=== PATIENT | female | born 1945 | race Caucasian/White ===

== ENCOUNTER 2020-05-21 23:17 | Inpatient (IN) | payer MEDICARE, SELFPAY ==
--- NOTE | ~2020-05-21 | XR_ITS ---
EXAMINATION: XR hip RT 2V w AP pelvis INDICATION: Right hip pain after fall, initial encounter TECHNIQUE: AP view the pelvis and two views of the right hip are obtained. COMPARISON: 05/26/2018 FINDINGS: There is an acute, traumatic, closed subcapital fracture of the right femoral neck. There a re changes of interval surgical fixation of the previously described left femoral neck fracture. Ther e is a questionable lucency in the proximal diaphysis of the right femur on the AP view of the pelvis . A bone island is noted in the right ilium. The bowel gas pattern is normal. IMPRESSION: 1. Acute subcapital fracture of the right femoral neck. 2. Possible lytic lesion of the right proximal femoral diaphysis. This finding was discussed with Dr. Jose MD and will be further evaluated with CT. Reviewed, dictated and finalized at location A.
--- NOTE | ~2020-05-21 | XR_ITS ---
EXAMINATION: XR surgery orthopedic DATE: 05/23/2020 11:14 INDICATION: Right femoral neck fracture. TECHNIQUE: A single intraoperative view of right hip was obtained. COMPARISON: Pelvis and right hip radiographs 05/21/2020 FINDINGS: There is a broach in proximal right femur. No fracture. IMPRESSION: 1. Right hip arthroplasty in progress with broach in proximal right femur. Reviewed, dictated and finalized at location A.
--- NOTE | ~2020-05-21 | CT_ITS ---
EXAMINATION: CT hip RT wo con DATE: 05/22/2020 09:50 INDICATION: Possible lytic lesion of the proximal femur is seen on radiograph TECHNIQUE: Computed tomography (CT) of the right hip and proximal femur was performed without intrave nous contrast. The dose-length product (DLP) was 253.21 mGy-cm. Automated exposure control and iterat kyle reconstruction technique were employed. COMPARISON: 05/21/2020, 05/26/2018 FINDINGS: No suspicious correlate is identified for the questionable lytic lesion on yesterday's radi ograph. There is an acute subcapital fracture of the right femoral neck. No additional acute osseous abnormality is identified. The visualized pelvic viscera are unremarkable. IMPRESSION: 1. No CT correlate identified for the lytic lesion questioned on radiograph. 2. Acute subcapital right femoral neck fracture. Reviewed, dictated and finalized at location A.
--- NOTE | ~2020-05-21 | XR_ITS ---
EXAMINATION: XR thoracic spine 2V, XR lumbar spine 2-3V DATE: 05/24/2020 14:14 INDICATION: Fall. Prior compression fractures. TECHNIQUE: 1. One AP, lateral and lateral swimmer's views of the thoracic spine were obtained. 2. AP, lateral and coned-down lateral lumbosacral views of the lumbar spine were obtained. COMPARISON: Chest radiograph dated 09/07/2019 FINDINGS: Thoracic spine: Mild thoracic kyphosis. Chronic compression fractures with interval vertebroplasty is at T8 and T12, both with 40% anterior vertebral body height loss. Interval progression of a chronic T7 compression f racture now with 60% anterior vertebral body height loss. Remaining vertebral body heights are normal . Disc heights are relatively preserved with mild ballooning of the disc spaces at T6-T7, T7-T8 and T 11-T12 resulting from the adjacent compression fractures. Calcified nodule in the right upper lung zo ne consistent with old granulomatous disease. Mild elevation of the left hemidiaphragm. Cardiomediast inal silhouette is normal. Lumbar spine: 4 mm retrolisthesis L5 on S1. Age-indeterminate L5 compression fracture with <20% vertebral body heig ht loss. Mild disc height loss at L1-L2 and L3-L4, severe disc height loss with vacuum phenomena and endplate remodeling at L5-S1. Bipolar type right hip hemiarthroplasty. Old healed left femoral neck f racture with lag screw fixation. IMPRESSION: 1. Chronic thoracic compression fractures with interval vertebroplasty at T8 and T12 and with interva l progression of vertebral body height loss at T7. 2. Age indeterminate mild L5 compression fracture. 3. Severe spondylosis at L5-S1 and mild spondylosis of the remainder of the thoracic and lumbar spine . Reviewed, dictated and finalized at location A. IMPRESSION: 1. Chronic thoracic compression fractures with interval vertebroplasty at T8 an d T12 and with interval progression of vertebral body height loss at T7. 2. Age indeterminate mild L5 compression fracture. 3. Severe spondylosis at L5-S1 and mild spondylosis of the remainder of the tho racic and lumbar spine.
--- NOTE | ~2020-05-21 | XR_ITS ---
EXAMINATION: XR hip RT min 2V DATE: 05/23/2020 12:14 INDICATION: Right hip arthroplasty. Postop. TECHNIQUE: 2 views of right hip were obtained. COMPARISON: Right hip radiographs 05/21/2020 FINDINGS: There is a bipolar right hip arthroplasty in near-anatomic alignment. There is 3 mm lucency adjacent to the proximal aspect of the femoral component anteriorly. No fracture. Right hip joint sp stacy is normal. There is gas in the soft tissues, consistent with recent surgery. IMPRESSION: 1. Bipolar right hip hemiarthroplasty in near-anatomic alignment. Reviewed, dictated and finalized at location B.
[2020-05-21 23:17] VITALS: BP 168/101; PULSE 97; RESP 16; TEMP 37.1; O2SAT 92
[2020-05-22] VITALS (9 sets, daily range): BP systolic 117–172; BP diastolic 89–100; PULSE 91–107; RESP 16–20; TEMP 36.2–37; O2SAT 94–97; BMI 29.3
--- NOTE | 2020-05-22 00:07 | ECG_ITS ---
Measurements Intervals [place] Rate: 92 P: 48 IN: 132 QRS: -8 QRSD: 86 T: 56 QT: 372 QTc: 462 Interpretive Statements SINUS RHYTHM POSSIBLE LEFT ATRIAL ENLARGEMENT INCOMPLETE RIGHT BUNDLE BRANCH BLOCK BASELINE ARTIFACT- I, III, AVR, AVL, AVF BORDERLINE ECG Electronically Signed On 05-22-2020 7:03:04 CDT by Vel Che D.O.
--- NOTE | 2020-05-22 00:13 | ED.LOWEXIN ---
HPI - Extremity Injury (Lower) General Chief Complaint: Extremity Injury, Lower Stated Complaint: hip pain Time Seen by Provider: 05/21/20 23:49 History of Present Illness HPI Narrative: Patient is a 74-year-old female with history of dementia who presents ER status post fall. She got up from her bed to go to the bathroom and usually her helps her but he was asleep and she would awaken him so she fell onto her hip. Sudden onset pain. No numbness or tingling. Pain with attempted range of motion. Does not take any blood thinners. Related Data Home Medications Medication Instructions Recorded Confirmed Namzaric 1 cap PO HS 09/07/19 05/22/20 lorazepam 0.5 mg PO BID PRN 09/07/19 05/22/20 sertraline 50 mg PO DAILY 09/07/19 05/22/20 duloxetine 60 mg capsule,delayed 60 mg PO DAILY 09/17/19 05/22/20 release oxycodone-acetaminophen 5 mg-325 1 tablet PO Q8H PRN tablet 01/15/20 05/22/20 mg tablet fentanyl 1 patch TRANSDERMAL Q72H 05/21/20 05/21/20 Allergies Allergy/AdvReac Type Severity Reaction Status Date / Time No Known Allergies Allergy Unverified 03/16/20 10:41 Review of Systems Review of Systems: ROS unobtainable: Yes unobtainable due to mental status (Baseline dementia.) PMFSH Past Medical History Medical History (Updated 05/22/20 @ 06:49 by Michael Bowie MD) Alzheimer's disease Anxiety Arthritis HLD (hyperlipidemia) Shingles Thoracic compression fracture Surgical History Surgical History H/O right wrist surgery History of knee replacement lt knee Hx of breast biopsy lt breast Social History Social History Smoking status: Never smoker Alcohol intake: current Drinks per week: 2 Substance use: never Substance use type: does not use Gender identity (if verbalized by the patient): Female Spiritual care concerns: No Agree to blood products: Yes Exam Narrative: Exam Narrative: GENERAL: Well-appearing, well-nourished, and in no acute distress. HEAD: Normocephalic, atraumatic. ENT: Mucous membranes moist. CHEST: Clear to auscultation. No respiratory distress. HEART: Regular rate and rhythm. Normal peripheral pulses. EXTREMITIES: TTP at the right hip with limited ROM. NV intact distally. SKIN: Warm, dry, no rash. NEURO: Alert and oriented x1. PSYCH: Normal mood and affect. Course Course Emergency Course: Discussed with Dr. Garcia, needs hospitalist admission. Vital Signs Vital signs: Vital Signs Temperature 98.8 F 05/21/20 23:17 Pulse Rate 97 05/21/20 23:17 Respiratory Rate 16 05/21/20 23:17 Blood Pressure 168/101 H 05/21/20 23:17 Pulse Oximetry 92 05/21/20 23:17 Temperature 97.6 F 05/22/20 04:10 Pulse Rate 96 05/22/20 04:41 Respiratory Rate 18 05/22/20 04:10 Blood Pressure 172/100 H 05/22/20 04:41 Pulse Oximetry 95 05/22/20 04:10 MDM - Extremity Injury (Lower) Lab Data Result diagrams: 05/22/20 00:25 05/22/20 00:25 Labs: Lab Results 05/22/20 05/22/20 05/22/20 Range/Units 00:25 00:25 00:25 WBC 13.9 H (4.5-10.0) K/mm3 RBC 4.78 (4.2-5.4) M/mm3 Hgb 14.5 (12.0-15.0) g/dL Hct 44.2 (37.0-47.0) % MCV 92.5 (80-100) fl MCH 30.3 (26-34) pg MCHC 32.8 (32-36) g/dl RDW 13.3 (11.5-14.5) % Plt Count 293 (150-375) k/mm3 MPV 10.0 (7.4-10.4) fl Immature Gran % (Auto) 0.6 H (0-0.5) % Neut % (Auto) 86.0 H (45.5-73.1) % Lymph % (Auto) 6.5 L (18.3-44.2) % Carbon % (Auto) 6.3 (2.6-8.5) % Eos % (Auto) 0.2 (0-4.4) % Baso % (Auto) 0.4 (0.2-1.2) % Lymph # (Auto) 0.90 (0.9-3.2) K/mm3 Carbon # (Auto) 0.9 H (0.1-0.6) K/mm3 Eos # (Auto) 0.0 (0-0.3) K/mm3 Baso # (Auto) 0.1 (0.0-0.1) K/mm3 Abs Immat Gran (auto) 0.08 H (0.00-0.031) K/mm3 Absolute Neuts (auto) 12.0 H (1.3-6.7) K/mm3 Absolute Nucleated RB
[2020-05-22] MEDS: MORPHINE SULFATE 2 MG/ML INJ IV PUSH ×3 (00:22→22:36)
[2020-05-22 00:47] LABS: Basophils Absolute Auto 0.1 K/mm3 (0.0-0.1); Basophils Percent Auto 0.4 % (0.2-1.2); Eosinophils Percent Auto 0.2 % (0-4.4); Hematocrit 44.2 % (37.0-47.0); Hemoglobin 14.5 g/dL (12.0-15.0); Immature Granulocyte Absolute 0.08 K/mm3 (0.00-0.031); Immature Granulocyte Percent A 0.6 % (0-0.5); Lymphocytes Percent Auto 6.5 % (18.3-44.2); Mean Corpuscular HGB Conc 32.8 g/dl (32-36); Mean Corpuscular Hemoglobin 30.3 pg (26-34); Mean Corpuscular Volume 92.5 fl (80-100); Monocytes Absolute Auto 0.9 K/mm3 (0.1-0.6); Monocytes Percent Auto 6.3 % (2.6-8.5); Platelet Count Result 293 k/mm3 (150-375); Red Blood Count 4.78 M/mm3 (4.2-5.4); Red Cell Distribution Width 13.3 % (11.5-14.5); White Blood Count 13.9 K/mm3 (4.5-10.0)
[2020-05-22 00:59] LABS: Anion Gap 7 mmol/L (8-16); Blood Urea Nitrogen 18 mg/dL (7-17); Calcium 8.8 mg/dL (8.4-10.2); Carbon Dioxide 26 mmol/L (22-30); Chloride 100 mmol/L (98-107); Estimated CRCL calculation 58 ml/min; Estimated Glomerular Filt Rate > 60; Glucose 106 mg/dL (65-105); Potassium 3.6 mmol/L (3.4-5.0); Sodium 133 mmol/L (137-145)
[2020-05-22 01:09] LABS: Partial Thromboplastin Time 27.5 SECONDS (22.3-36.8); Prothrombin Time 12.5 Seconds (11.1-14.7)
[2020-05-22 01:34] LABS: Add Urine Microscopic? YES; Appearance Urine Clear (Clear); Bilirubin Urine Negative (Negative); Blood Urine 1+ (Negative); Color Urine Yellow (Yellow); Glucose Urine UA Negative (Negative); Ketones Urine Trace mg/dL (Negative); Leukocyte Esterase Ur Negative LEU/UL (Negative); Mucus Urine Rare /lpf; Nitrate Urine Negative (Negative); Protein Urine 1+ mg/dL (Negative); Specific Grav Ur 1.023 (1.001-1.035); Squamous Epithelial Cell Urine Rare /hpf (Few); Urobilinogen Urine Negative mg/dL (<2.0); WBC Urine 0-3 /hpf
--- NOTE | 2020-05-22 04:27 | ADMGEN ---
This patient, Margaret Ayon, was admitted to [facility] Surg Room 306-01 at 0405. Patient/family oriented to hospital policies and general routines including ID bracelet, bed and alarms, visiting hours, pain management, procedures, bathroom and other care routines, personal items, smoking policy, room service/diet, and visiting hours. Valuables list has been completed. Information on how to activate the Rapid Response Team has been discussed. Patient/Family are encouraged to report perceived risks to care and to ask questions if they do not understand what they are told or what they should do.
--- NOTE | 2020-05-22 04:39 | ECG_ITS ---
Measurements Intervals [place] Rate: 88 P: 70 AL: 132 QRS: -1 QRSD: 82 T: 64 QT: 388 QTc: 471 Interpretive Statements SINUS RHYTHM BASELINE ARTIFACT- I, II, III, AVL, AVF NORMAL ECG Electronically Signed On 05-22-2020 7:05:36 CDT by Vel Che D.O.
[2020-05-22] MEDS: LIDOCAINE HCL 2% GEL UROJET 10 ML PKG MUCOUS MEM (05:38)
--- NOTE | 2020-05-22 08:19 | PC.NURSE ---
Spoke with patient's daughter to obtain medical history and home medications. Daughter reports that the patient has thoracic spine compression fractures and frequently complains of chest pain or her heart hurting but that the patient's doctors believe that the pain stems from the fractures and the patient is confused about the true source of the pain.
--- NOTE | 2020-05-22 08:45 | PM.CNOR ---
Assessment and Plan Assessment and plan (1) Subcapital fracture of neck of right femur: Qualifiers: Encounter type: initial encounter Fracture type: closed Qualified Code(s): S72.011A - Unspecified intracapsular fracture of right femur, initial encounter for closed fracture Code(s): S72.011A - Unspecified intracapsular fracture of right femur, initial encounter for closed fracture Status: Acute Assessment and Plan: 74-year-old female with a displaced right subcapital femoral neck fracture. Comparing the current x-rays to the ones from two years ago, there is a difference in the appearance of the proximal femur. I discussed this with the radiologist this morning. CT scan has been ordered. She does have a history of a breast biopsy in the past however we have no information regarding that. She thinks it might have been done in [place] and is not certain how long ago that may have been. I do not find any evidence of it in the records from 2018 but it is mentioned on the ER record in late 2019. Ultimately she is going to need to have surgical stabilization of this. If it appears that there is a lytic lesion with unknown primary, my recommendation is going to be to transfer her to [place]. No other history given for metastatic disease, myeloma, or lymphoma however as noted she is confused. Thank you for the consultation. History of Present Illness HPI Consult date: 05/22/20 Consult reason: fracture Chief complaint: Femoral Neck Fracture Narrative: 74-year-old female who fell at her home last night. She came to the emergency room with complaints of right hip pain and was found to have a right femoral neck fracture. She was admitted for further evaluation and management of this issue. No other injuries with this occurrence. No other complaints of pain other than in her right hip area this morning . She states that her memory is not as good as it used to be. Review of Systems Constitutional: Constitutional: Reports no additional constitutional complaints Eyes: Eyes: Reports no additional eye complaints ENT: Reports system reviewed and no additional complaints, except as documented Cardiovascular: Cardiovascular: Denies chest pain at rest and Denies dyspnea Respiratory: Respiratory: Reports no additional respiratory complaints and Denies dyspnea Gastrointestinal: Gastrointestinal: Reports no additional gastrointestinal complaints Musculoskeletal: Musculoskeletal: Reports as per HPI Integumentary/Breasts: Skin/Breast: Reports system reviewed and no additional complaints, except as docu Neurologic: Reports as per HPI Endocrine: Endocrine: Denies excessive sweating and Denies fatigue Hematologic/Lymphatic: Hematologic/Lymphatic: Denies easy bleeding and Denies easy bruising PMFSH Past Medical History Medical History (Updated 05/22/20 @ 08:56 by Gary Garcia MD) Alzheimer's disease Anxiety Arthritis HLD (hyperlipidemia) Shingles Thoracic compression fracture Surgical History Surgical History (Updated 05/22/20 @ 08:56 by Gary Garcia MD) H/O right wrist surgery History of knee replacement lt knee Hx of breast biopsy lt breast Subcapital fracture of neck of right femur Family History Family History Mother Acute myocardial infarction Family history of coronary artery disease, Onset Age: 47 Father Family history of dementia Hypertension Other Cerebrovascular accident Family history of malignant neoplasm of breast Family history of malignant neoplasm of kidney Social History Social History Smoking status: Never smoker Alcohol intake: current Drinks per week: 2 Substance use: never Substance use type: does not use Gender identity (if verbalized by the patient): Female Spiritual care concerns: No Agree to blood products: Yes
--- NOTE | 2020-05-22 13:17 | PM.IMHP ---
H&P: HPI History of Present Illness Date/Time: 05/22/20 13:17 Chief complaint: Femoral Neck Fracture Narrative: Date of admission: 05/22/2020 Date of service: 05/22/2020 Margaret Ayon is a 74 year old female with history of Alzheimer's dementia, anxiety, hyperlipidemia, and thoracic compression fracture who presented to the emergency department on 05/22/2020 with complaints of right hip pain after sustaining a ground level, mechanical fall in her home. Patient has dementia and is pleasantly confused, oriented to self only. Therefore, most of this information is obtained from her daughter, Ashlee, who is with her at the bedside. The patient lives at home with her . Last night they both dozed off intheir chairs while watching TV. The patient got up from her chair to go to bed. Usually her helps her get to bed, but he was asleep. She walked from the living room to her bedroom but took a misstep and fell. Her awoke to the sound of her falling and got up to help her up immediately afterwards. He then called his daughter and called EMS. Upon presentation, her hip x-ray showed an acute subcapital fracture of the right femoral neck as well as possible lytic lesion on the right proximal femoral diaphysis. This was followed up with CT finding which did not identify a lytic lesion. She has been admitted to the hospitalist service and will be seen in consultation by Dr. Garcia, orthopedics. At this time, the patient complains of 8/10 right hip pain. She also endorses pain in both her legs, both her knees, and her back. She is current with pain management for arthritis and pain related to thoracic compression fractures. Her daughter reports frequent falls, approximately 2 this past month and several falls this year. She states that her mom is very weak and she believes this is due to deconditioning. The patient has a [place] catheter in. She consistently states that she needs to urinate and frequently needs to be reminded that she can simply urinate as she has a catheter in place. Review of Systems Review of Systems: Narrative: A 12 point review of systems was reviewed with pertinent positives and negatives as per HPI. Patient denies fever, chills, nausea, or vomiting. She denies abdominal pain, chest pain, shortness of breath, or palpitations. She is current with pain management and recently had a steroid shot in her left shoulder several days ago. She is also current with psychiatry who manages her Alzheimer's and several other medications. [facility] Past Medical History Medical History (Updated 05/22/20 @ 13:30 by Eli Lujan PA-C) Alzheimer's disease Anxiety Arthritis HLD (hyperlipidemia) Shingles Thoracic compression fracture Surgical History Surgical History (Updated 05/22/20 @ 13:30 by Eli Lujan PA-C) H/O kyphoplasty T7-T8 H/O right wrist surgery History of knee replacement lt knee 2016 Hx of breast biopsy lt breast; negative pathology Subcapital fracture of neck of right femur Family History Family History Mother Acute myocardial infarction Family history of coronary artery disease, Onset Age: 47 Father Family history of dementia Hypertension Other Cerebrovascular accident Family history of malignant neoplasm of breast Family history of malignant neoplasm of kidney Social History Social History (Updated 05/22/20 @ 13:33 by Eli Lujan PA-C) Social History: Patient lives at home with her . Her daughter Ashlee is her durable power of staff attorney. Patient would like to be a full code. Her PCP was Dr. Pepper and has been seeing a nurse practitioner in her office for some time. Smoking status: Never smoker Alcohol intake: current Drinks per week: 2 Substance use: never Substance use type: does not use Living arrangements: with family Occupation/Education: retired Gender identity (
--- NOTE | 2020-05-22 15:59 | WPDANESEPP ---
Anes - Eval Pre Procedure Procedure: Right Bipolar Hip Date/Time: 05/22/20 15:59 Surgeon: Dr. Garcia Preop Diagnosis: Acute subcapital fracture of neck of right femur Pre Op Diagnosis: Femoral Neck Fracture Patient Data Age: 74 Gender: F Height: 5 ft Weight: 51.6 kg Last Vital Signs Temp 36.4 C L 05/22/20 12:00 Pulse 94 05/22/20 12:00 Resp 18 05/22/20 12:00 BP 153/97 H 05/22/20 12:00 Pulse Ox 95 05/22/20 12:00 Allergies Allergy/AdvReac Type Severity Reaction Status Date / Time No Known Allergies Allergy Unverified 03/16/20 10:41 Home Medications Medication Instructions Recorded Confirmed Type Namzaric 1 cap PO HS 09/07/19 05/22/20 History lorazepam 0.5 mg PO BID PRN 09/07/19 05/22/20 History sertraline 50 mg PO DAILY 09/07/19 05/22/20 History duloxetine 60 mg capsule,delayed 60 mg PO DAILY 09/17/19 05/22/20 History release oxycodone-acetaminophen 5 mg-325 1 tablet PO Q8H PRN tablet 01/15/20 05/22/20 History mg tablet meloxicam 15 mg tablet 15 mg PO DAILY PRN #90 tablet 04/11/20 05/22/20 Rx fentanyl 1 patch TRANSDERMAL Q72H 05/21/20 05/21/20 History Laboratory Tests 05/22/20 05/22/20 05/22/20 00:25 00:25 00:25 WBC 13.9 K/mm3 H K/mm3 (4.5-10.0) RBC 4.78 M/mm3 M/mm3 (4.2-5.4) Hgb 14.5 g/dL g/dL (12.0-15.0) Hct 44.2 % % (37.0-47.0) MCV 92.5 fl fl (80-100) MCH 30.3 pg pg (26-34) MCHC 32.8 g/dl g/dl (32-36) RDW 13.3 % % (11.5-14.5) Plt Count 293 k/mm3 k/mm3 (150-375) MPV 10.0 fl fl (7.4-10.4) Immature Gran % (Auto) 0.6 % H % (0-0.5) Neut % (Auto) 86.0 % H % (45.5-73.1) Lymph % (Auto) 6.5 % L % (18.3-44.2) [place] % (Auto) 6.3 % % (2.6-8.5) Eos % (Auto) 0.2 % % (0-4.4) Baso % (Auto) 0.4 % % (0.2-1.2) Lymph # (Auto) 0.90 K/mm3 K/mm3 (0.9-3.2) [place] # (Auto) 0.9 K/mm3 H K/mm3 (0.1-0.6) Eos # (Auto) 0.0 K/mm3 K/mm3 (0-0.3) Baso # (Auto) 0.1 K/mm3 K/mm3 (0.0-0.1) Abs Immat Gran (auto) 0.08 K/mm3 H K/mm3 (0.00-0.031) Absolute Neuts (auto) 12.0 K/mm3 H K/mm3 (1.3-6.7) Absolute Nucleated RBC 0.0 K/mm3 K/mm3 (0.0-0.012) Nucleated RBC % 0.0 % % (0.0-0.2) PT 12.5 Seconds Seconds (11.1-14.7) INR 1.0 APTT 27.5 SECONDS SECONDS (22.3-36.8) Sodium 133 mmol/L L mmol/L (137-145) Potassium 3.6 mmol/L mmol/L (3.4-5.0) Chloride 100 mmol/L mmol/L (98-107) Carbon Dioxide 26 mmol/L mmol/L (22-30) Anion Gap 7 mmol/L L mmol/L (8-16) BUN 18 mg/dL H mg/dL (7-17) Creatinine 0.50 mg/dL L mg/dL (0.7-1.0) Estim Creat Clear Calc 58 ml/min ml/min Estimated GFR > 60 (59 - ) Glucose 106 mg/dL H mg/dL (65-105) Calcium 8.8 mg/dL mg/dL (8.4-10.2) Urine Color Urine Appearance Urine pH Ur Specific [place] Urine Protein Urine Glucose (UA) Urine Ketones Ur Blood (Man) Urine Nitrate Urine Bilirubin Urine Urobilinogen Leukocyte Esterase Rfl Urine RBC Urine WBC Ur Squamous Epith Cells Urine Mucus 05/22/20 01:22 WBC RBC Hgb Hct MCV MCH MCHC RDW Plt Count MPV Immature Gran % (Auto) Neut % (Auto) Lymph % (Auto) [place] % (Auto) Eos % (Auto) Baso % (Auto) Lymph # (Auto) [place] # (Auto) Eos # (Auto) Baso # (Auto) Abs Immat Gran (auto) Absolute Neuts (auto) Absolute Nucleated RBC Nucleated RBC % PT INR APTT Sodium P
[2020-05-22] MEDS: ceFAZolin 2 GM/D5W 50 ML 2 GM/50 ML BAG IVPB (17:11)
[2020-05-22] MEDS: MEMANTINE HCL XR 28 MG CAP PO (20:18)
[2020-05-22] MEDS: DOCUSATE SODIUM 100 MG CAPSULE PO (20:18)
[2020-05-22] MEDS: FAMOTIDINE 20 MG TABLET PO (20:18)
[2020-05-22] MEDS: DONEPEZIL HCL 10 MG TABLET PO (20:18)
[2020-05-23] VITALS (17 sets, daily range): BP systolic 142–184; BP diastolic 75–117; PULSE 50–106; RESP 10–20; TEMP 36.1–36.9; O2SAT 92–100
[2020-05-23] MEDS: MORPHINE SULFATE 2 MG/ML INJ IV PUSH (04:12)
[2020-05-23 06:48] LABS: Hematocrit 45.9 % (37.0-47.0); Mean Corpuscular HGB Conc 32.7 g/dl (32-36); Mean Corpuscular Hemoglobin 29.9 pg (26-34); Mean Corpuscular Volume 91.6 fl (80-100); Mean Platelet Volume 10.2 fl (7.4-10.4); Platelet Count Result 244 k/mm3 (150-375); Red Blood Count 5.01 M/mm3 (4.2-5.4); Red Cell Distribution Width 13.4 % (11.5-14.5); White Blood Count 9.1 K/mm3 (4.5-10.0)
[2020-05-23 06:59] LABS: Anion Gap 5 mmol/L (8-16); Blood Urea Nitrogen 15 mg/dL (7-17); Calcium 8.6 mg/dL (8.4-10.2); Carbon Dioxide 30 mmol/L (22-30); Chloride 101 mmol/L (98-107); Estimated CRCL calculation 85 ml/min; Estimated Glomerular Filt Rate > 60; Glucose 100 mg/dL (65-105); Potassium 3.4 mmol/L (3.4-5.0); Sodium 136 mmol/L (137-145)
--- NOTE | 2020-05-23 07:58 | PCOTNOTE ---
Per RN, pt going into surgery today for total hip replacement. Will need new order to resume OT evaluation.
--- NOTE | 2020-05-23 08:05 | PCPTNOTE ---
Per RN, pt going into surgery today for total hip replacement. Will need new order to resume PT evaluation.
--- NOTE | 2020-05-23 08:57 | WPDANESEPPF ---
Anes - Initial Pre Proc Eval Procedure: Operation Date: 05/23/20 09:30 Proposed Procedures p Right Bipolar Hip Replacement - Gary Garcia MD Date/Time: 05/23/20 08:57 Surgeon: Eli Lujan PA-C Pre Op Diagnosis: Femoral Neck Fracture Patient Data Age: 74 Gender: F Height: 5 ft 5 in Weight: 80 kg Last Vital Signs Temp 36.9 C 05/23/20 08:50 Pulse 86 05/23/20 08:50 Resp 20 05/23/20 08:50 BP 176/117 H 05/23/20 08:50 Pulse Ox 96 05/23/20 08:50 Allergies Allergy/AdvReac Type Severity Reaction Status Date / Time No Known Allergies Allergy Unverified 03/16/20 10:41 Home Medications Medication Instructions Recorded Confirmed Type Namzaric 1 cap PO HS 09/07/19 05/22/20 History lorazepam 0.5 mg PO BID PRN 09/07/19 05/22/20 History sertraline 50 mg PO DAILY 09/07/19 05/22/20 History duloxetine 60 mg capsule,delayed 60 mg PO DAILY 09/17/19 05/22/20 History release oxycodone-acetaminophen 5 mg-325 1 tablet PO Q8H PRN tablet 01/15/20 05/22/20 History mg tablet meloxicam 15 mg tablet 15 mg PO DAILY PRN #90 tablet 04/11/20 05/22/20 Rx fentanyl 1 patch TRANSDERMAL Q72H 05/21/20 05/21/20 History Laboratory Tests 05/23/20 05/23/20 05/23/20 06:04 06:04 06:04 WBC 9.1 K/mm3 K/mm3 (4.5-10.0) RBC 5.01 M/mm3 M/mm3 (4.2-5.4) Hgb 15.0 g/dL g/dL (12.0-15.0) Hct 45.9 % % (37.0-47.0) MCV 91.6 fl fl (80-100) MCH 29.9 pg pg (26-34) MCHC 32.7 g/dl g/dl (32-36) RDW 13.4 % % (11.5-14.5) Plt Count 244 k/mm3 k/mm3 (150-375) MPV 10.2 fl fl (7.4-10.4) Sodium 136 mmol/L L mmol/L (137-145) Potassium 3.4 mmol/L mmol/L (3.4-5.0) Chloride 101 mmol/L mmol/L (98-107) Carbon Dioxide 30 mmol/L mmol/L (22-30) Anion Gap 5 mmol/L L mmol/L (8-16) BUN 15 mg/dL mg/dL (7-17) Creatinine 0.50 mg/dL L mg/dL (0.7-1.0) Estim Creat Clear Calc 85 ml/min ml/min Estimated GFR > 60 (59 - ) Glucose 100 mg/dL mg/dL (65-105) Calcium 8.6 mg/dL mg/dL (8.4-10.2) Vitamin D 25-Hydroxy Pending Patient hx anesthesia problems: none Family hx anesthesia problems: none PMFSH Past Medical History Medical History Alzheimer's disease Anxiety Arthritis HLD (hyperlipidemia) Shingles Thoracic compression fracture Surgical History Surgical History H/O kyphoplasty T7-T8 H/O right wrist surgery History of knee replacement lt knee 2016 Hx of breast biopsy lt breast; negative pathology Subcapital fracture of neck of right femur Family History Family History Mother Acute myocardial infarction Family history of coronary artery disease, Onset Age: 47 Father Family history of dementia Hypertension Other Cerebrovascular accident Family history of malignant neoplasm of breast Family history of malignant neoplasm of kidney Social History Social History Social History: Patient lives at home with her . Her daughter Ashlee is her durable power of securities attorney. Patient would like to be a full code. Her PCP was Dr. Pepper and has been seeing a nurse practitioner in her office for some time. Smoking status: Never smoker Alcohol intake: current Drinks per week: 2 Substance use: never Substance use type: does not use Living arrangements: with family Occupation/Education: retired Gender identity (if verbalized by the patient): Female Spiritual care concerns: No Agree to blood products: Yes Jaziel - Ulises Final PreProcedure Day of Procedure 05/23/20 08:57 Patient weight: normal Heart: regular rate
--- NOTE | 2020-05-23 09:28 | SUR.PREOP ---
SPOKE TO DR SWANN. CLARIFY ORDERS. DO NOT GIVE TYLENOL OR TORADOL. NO VANCOMYCIN. GIVEN SIMPSON ACID.
[2020-05-23] MEDS: LACTATED RINGERS 1,000 ML 30 ML IV CONT ×3 (09:41→12:28)
[2020-05-23] MEDS: TRANEXAMIC ACID 1,000MG/ISO100 1,000 MG/100 ML BAG 200 MG IVPB (09:42)
--- NOTE | 2020-05-23 09:43 | SUR.PREOP ---
NOTIFIED DR SWANN THAT BORDEN IS LEAKING. FLOOR RN STATES BORDEN HAS BEEN LEAKING SINCE INSERTION. WILL CHANGE IN OR.
[2020-05-23] MEDS: ceFAZolin 2 GM/D5W 50 ML 2 GM/50 ML BAG IVPB ×2 (09:53→17:31)
[2020-05-23] MEDS: BUPIVACAINE/EPINEPHRINE 0.25% 50 ML VIAL INFILTRATE (10:35)
[2020-05-23] MEDS: TRANEXAMIC ACID 1,000 MG/10 ML AMPUL 1000 MG TOPICAL (10:35)
--- NOTE | 2020-05-23 12:14 | P.OP_ITS ---
Procedure Note - Detailed Date of procedure: 05/23/20 Pre-op diagnosis: Femoral Neck Fracture Post-op diagnosis: same Procedure performed: right bipolar hip replacement Description of procedure: The patient was identified and proper site identified, then taken back to the operating room and transferred to the OR table. After general anesthetic induction and intubation, the patient was positioned in the left lateral decubitus position in the usual manner for a right hip procedure, and secured with padded hip positioner making sure the torso and extremities were properly padded. The right lower extremity was prepped and draped in the usual sterile fashion. A curvilinear incision was made over the greater trochanter and sharp dissection carried down through the subcutaneous tissue to the gluteus fascia and IT band which were divided in line with the incision. The anterior 1/2 of the abductors were sharply dissected off the greater trochanter developing the interval between the abductors and the capsule. The capsule was divided in an inverted-T fashion exposing the fracture site. A neck cut was made about one fingerbreadth above the level of the lesser trochanter. Head fragment was removed and the acetabulum cleared of debris. The acetabulum was sized to 43 mm. The proximal femur was prepared for the size nine Press- Fit fracture stem. Trial reduction was undertaken and the hip was noted to be stable through range of motion. Through trialing it was noted that a 28- three head with 43 cup configuration gave evangelical of leg lengths with excellent stability. The neck of the femoral component was cleaned and dried and the real components in those sizes were attached to the femoral stem. After final thorough lavage of the joint and a Betadine bath, the hip was again reduced. The capsule and denilson-incisional tissues were infiltrated with 50 mL 0.25% Marcaine and epinephrine solution. 1 g of tranexamic acid was placed deep in the wound. The capsule was repaired with #2 Ethibond suture. The abductors were repaired to the greater trochanter with #5 Ethibond suture passed through a bony bridge. The deep fascia was reapproximated with 0 looped PDS suture. Deeper layers of the subcu reapproximated with 0 looped PDS suture. 2-0 strata fix and tissue adhesive were used for the skin, and a sterile dressing was applied. Procedure was well tolerated and there were no known intraoperativ e complications. Anesthesia: [facility] Surgeon: Gary Garcia MD Food Editor: Thierno Castillo Estimated blood loss (mL): 200 Drains: No Packing: No Pathology: yes (femoral head and and neck fragments) Complications: No immediate complications Condition: stable Disposition: PACU
[2020-05-23] MEDS: LABETALOL HCL INJ 100 MG/20 ML VIAL IV PUSH (12:15)
--- NOTE | 2020-05-23 14:22 | PM.IMPN ---
Progress Note: A&P Assessment and Plan (1) Subcapital fracture of neck of right femur: Qualifiers: Encounter type: initial encounter Fracture type: closed Qualified Code(s): S72.011A - Unspecified intracapsular fracture of right femur, initial encounter for closed fracture Code(s): S72.011A - Unspecified intracapsular fracture of right femur, initial encounter for closed fracture Status: Acute Assessment and Plan: Sustained from mechanical, ground level fall on 05/21. Hip x-ray shows acute subcapital fracture of right femoral neck with possible lytic lesion of the right proximal femoral diaphysis. Follow-up CT does not show lytic lesion in question. She underwent right bipolar hip replacement today by Dr. Garcia and tolerated the procedure well. Weight-bearing, DVT prophylaxis, and postop care per Dr. Garcia Analgesics for pain control (2) Hypertension: Code(s): I10 - Essential (primary) hypertension Status: Acute Assessment and Plan: Blood pressure reviewed today and remains elevated. Patient is not on any home antihypertensives. Suspect elevation is secondary to pain. IV hydralazine p.r.n. Monitor blood pressures closely. Consider addition of antihypertensive agent as needed. (3) Alzheimer's disease: Code(s): G30.9 - Alzheimer's disease, unspecified; F02.80 - Dementia in other diseases classified elsewhere without behavioral disturbance Status: Acute Assessment and Plan: Patient is alert to self only. She is pleasantly confused. Continue Namzaric. (4) Thoracic compression fracture: Code(s): S22.000A - Wedge compression fracture of unspecified thoracic vertebra, initial encounter for closed fracture Status: Chronic Assessment and Plan: Patient is s/p kyphoplasty of T7-T8 earlier this year. Compression fractures are evident on CXR from August 2019. She is established with Pain Management. Analgesics as needed (5) Frequent falls: Code(s): R29.6 - Repeated falls Status: Acute Assessment and Plan: Patient's daughter reports 2 falls in the past month and several falls over the past year. PT and OT to evaluate upon stabilization and clearance from Orthopedics. Patient will likely benefit from skilled therapy. TRC to evaluate Fall precautions. (6) Generalized weakness: Code(s): R53.1 - Weakness Status: Acute Assessment and Plan: Patient's daughter reports the patient has been extremely weak. This is likely secondary to deconditioning as patient's daughter reports she has been extremely sedentary. PT and OT as above. Appreciate recommendations. Fall precautions. Subjective Date/time seen: 05/23/20 14:22 Interval history: Date of service: 05/23/2020 Patient is a 74-year-old female with a history of Alzheimer's and thoracic compression fracture is here secondary to a right femoral neck fracture. She underwent right bipolar hip replacement today by Dr. Garcia. She tolerated the procedure well. I evaluated her after and she awoke to say hello and then went back to sleep. Her daughter says that she had not slept very well last night and is glad that she is getting some rest at this time. I did not attempt to wake her for any further questions. Daughter says she has not complained of any significant pain. She has not eaten anything since surgery but will attempt to eat dinner tonight. The patient's daughter is hopeful the patient will be a candidate for TRC so that she can stay with her throughout her rehabilitation. Daughter states that the patient does poorly when she is not around familiar faces. Care coordination is following for placement and TRC evaluation has been ordered. Review of Systems Review of Systems: Narrative: A 12 point review of systems was reviewed with pertinent positives and negatives as per HPI. Exam Narrative:
--- NOTE | 2020-05-23 14:30 | PCPTNOTE ---
Per Dr. Garcia, hold PT evaluation until tomorrow so patient can rest. Will attempt eval tomorrow.
[2020-05-23] MEDS: ACETAMINOPHEN 500 MG TABLET 1000 MG PO ×2 (15:58→20:48)
[2020-05-23] MEDS: FAMOTIDINE 20 MG TABLET PO ×2 (15:59→20:11)
[2020-05-23] MEDS: DOCUSATE SODIUM 100 MG CAPSULE PO ×3 (15:59→20:10)
[2020-05-23] MEDS: DEXTROSE 5%/0.45% SOD CHL 1,000 ML 80 ML IV CONT (17:30)
[2020-05-23] MEDS: DONEPEZIL HCL 10 MG TABLET PO (20:10)
[2020-05-23] MEDS: MEMANTINE HCL XR 28 MG CAP PO (20:10)
[2020-05-23] MEDS: LORazepam 0.5 MG TABLET PO (22:39)
[2020-05-24] MEDS: ceFAZolin 2 GM/D5W 50 ML 2 GM/50 ML BAG IVPB ×2 (01:29→10:45)
[2020-05-24 06:00] VITALS: BP 131/67; PULSE 75; RESP 18; TEMP 36.1; O2SAT 100
[2020-05-24 06:13] LABS: Basophils Percent Auto 0.3 % (0.2-1.2); Eosinophils Percent Auto 0.3 % (0-4.4); Hematocrit 39.3 % (37.0-47.0); Hemoglobin 12.6 g/dL (12.0-15.0); Immature Granulocyte Absolute 0.07 K/mm3 (0.00-0.031); Immature Granulocyte Percent A 0.6 % (0-0.5); Lymphocytes Percent Auto 10.9 % (18.3-44.2); Mean Corpuscular HGB Conc 32.1 g/dl (32-36); Mean Corpuscular Volume 93.6 fl (80-100); Monocytes Percent Auto 8.8 % (2.6-8.5); Neutrophils Absolute Auto 8.7 K/mm3 (1.3-6.7); Neutrophils Percent Auto 79.1 % (45.5-73.1); Platelet Count Result 251 k/mm3 (150-375); Red Cell Distribution Width 13.3 % (11.5-14.5)
[2020-05-24] MEDS: ACETAMINOPHEN 500 MG TABLET 1000 MG PO ×3 (06:32→21:51)
[2020-05-24 06:33] LABS: Anion Gap 3 mmol/L (8-16); Blood Urea Nitrogen 11 mg/dL (7-17); Carbon Dioxide 31 mmol/L (22-30); Chloride 100 mmol/L (98-107); Estimated CRCL calculation 85 ml/min; Estimated Glomerular Filt Rate > 60; Glucose 113 mg/dL (65-105); Potassium 3.2 mmol/L (3.4-5.0); Sodium 134 mmol/L (137-145)
--- NOTE | 2020-05-24 07:49 | P.PNAN_ITS ---
Anes - Prog Note Post-Op Date/Time: 05/24/20 07:49 Cardiovascular status: normal Respiratory status: normal Airway patency: baseline Mental status: other (talked to daughter who was at bedside patient sleeping- confused after surgery/ ho dementia and Alzheimers) Post-Op hydration status: normal Vital Signs: Last Vital Signs Temp 36.1 C L 05/24/20 06:00 Pulse 75 05/24/20 06:00 Resp 18 05/24/20 06:00 BP 131/67 05/24/20 06:00 Pulse Ox 100 05/24/20 06:00 I/O: Intake & Output 05/23/20 05/23/20 05/24/20 15:59 23:59 07:59 Intake Total 100 170 400 Output Total 30 150 1600 Balance 70 20 -1200 Laboratory Tests 05/24/20 05:55 05/24/20 05:55 05/23/20 05/24/20 05/24/20 06:04 05:55 05:55 WBC 11.0 H RBC 4.20 Hgb 12.6 Hct 39.3 MCV 93.6 MCH 30.0 MCHC 32.1 RDW 13.3 Plt Count 251 MPV 10.0 Immature Gran % (Auto) 0.6 H Neut % (Auto) 79.1 H Lymph % (Auto) 10.9 L [place] % (Auto) 8.8 H Eos % (Auto) 0.3 Baso % (Auto) 0.3 Lymph # (Auto) 1.20 [place] # (Auto) 1.0 H Eos # (Auto) 0.0 Baso # (Auto) 0.0 Abs Immat Gran (auto) 0.07 H Absolute Neuts (auto) 8.7 H Absolute Nucleated RBC 0.0 Nucleated RBC % 0.0 Sodium 134 L Potassium 3.2 L Chloride 100 Carbon Dioxide 31 H Anion Gap 3 L BUN 11 Creatinine 0.50 L Estim Creat Clear Calc 85 Estimated GFR > 60 Glucose 113 H Calcium 8.0 L Vitamin D 25-Hydroxy 29.0 Post-procedural complaints: none Patient Feedback: Patient sleeping talked to daughter
[2020-05-24] MEDS: DEXTROSE 5%/0.45% SOD CHL 1,000 ML 80 ML IV CONT (09:29)
[2020-05-24] MEDS: POTASSIUM CHLORIDE 20 MEQ TABLET 40 MEQ PO (09:32)
[2020-05-24] MEDS: DOCUSATE SODIUM 100 MG CAPSULE PO ×2 (09:33→21:51)
[2020-05-24] MEDS: polyethylene glycoL 3350 17 GM POWD.PACK PO (09:35)
[2020-05-24] MEDS: ENOXAPARIN 40 MG/0.4 ML SYRINGE SUB-Q (09:38)
--- NOTE | 2020-05-24 10:43 | PM.IMPN ---
Progress Note: A&P Assessment and Plan (1) Subcapital fracture of neck of right femur: Qualifiers: Encounter type: initial encounter Fracture type: closed Qualified Code(s): S72.011A - Unspecified intracapsular fracture of right femur, initial encounter for closed fracture Code(s): S72.011A - Unspecified intracapsular fracture of right femur, initial encounter for closed fracture Status: Acute Assessment and Plan: Sustained from mechanical, ground level fall on 05/21. Hip x-ray shows acute subcapital fracture of right femoral neck with possible lytic lesion of the right proximal femoral diaphysis. Follow-up CT did not show lytic lesion in question. She underwent right bipolar hip replacement 05/23/[address] Garcia. Doing well POD#1. Wound care, pain control, DVT prophylaxis per Dr. Garcia. Appreciate his recommendations. (2) Hypertension: Code(s): I10 - Essential (primary) hypertension Status: Acute Assessment and Plan: Blood pressures have been elevated may be in constitution party secondary to pain. Improved this morning last 131/67. Patient is not on any home antihypertensives. Continue IV hydralazine p.r.n. Monitor blood pressures closely. Consider addition of antihypertensive agent as needed. (3) Alzheimer's disease: Code(s): G30.9 - Alzheimer's disease, unspecified; F02.80 - Dementia in other diseases classified elsewhere without behavioral disturbance Status: Acute Assessment and Plan: Stable, pleasantly confused. Continue her home medications. (4) Thoracic compression fracture: Code(s): S22.000A - Wedge compression fracture of unspecified thoracic vertebra, initial encounter for closed fracture Status: Chronic Assessment and Plan: Patient is s/p kyphoplasty of T7-T8 earlier this year. She follows with Pain Management. Imaging shows interval progression of vertebral body height loss at T7. (5) Frequent falls: Code(s): R29.6 - Repeated falls Status: Acute Assessment and Plan: Patient's daughter reports 2 falls in the past month and several falls over the past year. Continue PT/OT. Patient will likely benefit from skilled therapy. TRC to evaluate. Fall precautions. (6) Generalized weakness: Code(s): R53.1 - Weakness Status: Acute Assessment and Plan: Patient's daughter reports the patient has been extremely weak. This is likely secondary to deconditioning as patient's daughter reports she has been very sedentary. Continue PT/OT Subjective Date/time seen: 05/24/20 10:35 Interval history: Ms. Ayon is a 74yo F with dementia and thoracic compression fractures here for right hip fracture now POD#1 s/p bipolar replacement by Dr Garcia. Doing well. She is seen in follow-up sitting up in the bedside chair. She is pleasantly confused and her daughter, Ashlee, is at the bedside at time of my encounter. Patient has eaten breakfast without nausea or vomiting. She describes her right hip pain is controlled at rest, worsened with movement. Review of Systems Review of Systems: Narrative: Twelve systems were reviewed with pertinent positives and negatives as per HPI. Exam Narrative: Exam Narrative: General: Female resting sitting up in bedside chair in no acute distress. HEENT: Normocephalic, EOMI, oral mucosa moist. Cardiovascular: Rate and rhythm are regular. Respiratory: Lungs clear to auscultation all bauman. Non-labored breathing. Abdomen: Soft, non-tender, non-distended, bowel sounds present. Extremities: Peripheral pulses intact. Right lower extremity neurovascularly intact distal to the surgical site. Right hip dressing is clean, dry, intact. Neuro: Marva
[2020-05-24] MEDS: DULoxetine HCL 60 MG CAPSULE.DR PO (11:38)
[2020-05-24] MEDS: SERTRALINE HCL 50 MG TABLET PO (11:38)
--- NOTE | 2020-05-24 11:42 | PM.PNORT ---
Progress Note: A&P Assessment and Plan (1) Subcapital fracture of neck of right femur: Qualifiers: Encounter type: initial encounter Fracture type: closed Qualified Code(s): S72.011A - Unspecified intracapsular fracture of right femur, initial encounter for closed fracture Code(s): S72.011A - Unspecified intracapsular fracture of right femur, initial encounter for closed fracture Status: Acute Assessment and Plan: 74-year-old female status post right bipolar replacement. She is certainly going to need a rehab stay before returning home. I had discussed this with the patient's daughter, who is her POA, yesterday. Following. Subjective Subjective Date/Time Seen: 05/24/20 11:42 Post Op day: 1 Principal diagnosis: right bipolar replacement Interval history: 74-year-old female postop day one right bipolar replacement. Uneventful overnight. Does note pain in the right hip area. Exam Const: General: cooperative, no acute distress and alert Nutritional Appearance: other Limitations: no limitations HENMT: Head: normal to inspection Ears: hearing grossly normal bilaterally Face and sinus: face symmetric Mouth: Yes moist mucous membranes Teeth and gingiva: fair dentition Eyes: Alignment and Position: alignment normal and position normal Sclera: sclerae normal Neck: Neck: normal visual inspection and nontender Chest: Chest palpation & inspection: normal inspection of the chest Resp: Effort & Inspection: normal respiratory effort and able to speak in complete sentences GI: Inspection: other ( Nondistended) Skin: General skin exam: normal color Rashes: no rashes Neuro: Speech: normal speech Gait exam (Neuro): Other gait observations present Sensory Exam: normal sensation Extrem: General: normal to inspection and other Other: Exam of of the right hip wound shows it to be clean and dry. Very little swelling and no erythema. Grossly motor and sensory function right lower extremity intact Psych: Appearance: grossly normal Mental Status: mental status grossly normal Objective Data Vital Signs Vital Signs: Vital Signs - 24 hr 05/23/20 11:57 05/23/20 12:13 05/23/20 12:15 Temperature 97.8 F Pulse Rate 91 100 100 Respiratory Rate 14 12 Blood Pressure 184/112 H 156/106 H Pulse Oximetry 100 100 05/23/20 12:30 05/23/20 12:45 05/23/20 12:59 Temperature Pulse Rate 76 77 80 Respiratory Rate 14 12 10 L Blood Pressure 163/97 H 165/94 H 160/85 H Pulse Oximetry 100 95 96 05/23/20 13:30 05/23/20 13:45 05/23/20 14:00 Temperature 97.0 F L 97.6 F 97.0 F L Pulse Rate 81 93 81 Respiratory Rate 16 16 16 Blood Pressure 160/90 H 155/87 H 160/90 H Pulse Oximetry 93 94 93 05/23/20 14:15 05/23/20 15:15 05/23/20 20:00 Temperature 97.6 F 98.2 F 98.4 F Pulse Rate 91 106 H 89 Respiratory Rate 16 16 18 Blood Pressure 142/80 H 151/93 H 150/102 H Pulse Oximetry 95 96 97 05/23/20 20:16 05/23/20 21:49 05/24/20 06:00 Temperature 98.2 F 97.0 F L Pulse Rate 100 75 Respiratory Rate 16 18 Blood Pressure 154/106 H 131/67 Pulse Oximetry 93 97 100 Intake/Output Intake/Output: Intake & Output 05/21/20 05/22/20 05/23/20 05/24/20 23:59 23:59 23:59 23:59 Intake Total 980 / 980 610 / 610 1520 / 1520 Output Total 175 / 175 430 / 330.0 1600 / 1600 Balance 805 / 805 180 / 280.0 -80 / -80 Meds/Results Medications: Active Medications Generic Name Dose Route Start Last Admin Trade Name Freq PRN Reason Stop Dose Admin Acetaminophen 1,000 mg 05/23/20 14:00 05/24/20 06:32 Tylenol Tablet PO 1,000 mg Q8HR DUANE Administration Docusate Sodium 100 mg 05/22/20 21:00 05/24/20 09:33 Colace Capsule PO 100 mg Q12HR DUANE Administration Donepezil HCl 10 mg 05/22/20 21:00 05/23/20 20:10 Aricept PO 10 mg HS DUANE Administration Duloxetine HCl 60 mg 05/24/20 10:50 05/24/20 11:38 Cymbalta PO 60 mg DAILY DUANE Administration Enoxaparin Sodiu
[2020-05-24 14:00] VITALS: BP 133/66; PULSE 113; RESP 18; TEMP 36.6; O2SAT 94
[2020-05-24] MEDS: FAMOTIDINE 20 MG TABLET PO ×2 (15:42→21:51)
[2020-05-24] MEDS: LORazepam 0.5 MG TABLET PO (15:43)
[2020-05-24] MEDS: MEMANTINE HCL XR 28 MG CAP PO (21:51)
[2020-05-24] MEDS: DONEPEZIL HCL 10 MG TABLET PO (21:51)
[2020-05-24 22:00] VITALS: BP 144/87; PULSE 56; RESP 18; TEMP 36.3; O2SAT 97
[2020-05-25 06:00] VITALS: BP 128/75; PULSE 78; RESP 16; TEMP 36.3; O2SAT 98
[2020-05-25] MEDS: ACETAMINOPHEN 500 MG TABLET 1000 MG PO ×2 (06:08→12:45)
[2020-05-25 07:40] LABS: Anion Gap 3 mmol/L (8-16); Blood Urea Nitrogen 14 mg/dL (7-17); Carbon Dioxide 29 mmol/L (22-30); Chloride 103 mmol/L (98-107); Estimated CRCL calculation 85 ml/min; Estimated Glomerular Filt Rate > 60; Glucose 100 mg/dL (65-105); Magnesium 2.1 mg/dL (1.6-2.3); Potassium 3.8 mmol/L (3.4-5.0); Sodium 135 mmol/L (137-145)
[2020-05-25] MEDS: ENOXAPARIN 40 MG/0.4 ML SYRINGE SUB-Q (09:36)
[2020-05-25] MEDS: SERTRALINE HCL 50 MG TABLET PO (09:36)
[2020-05-25] MEDS: DOCUSATE SODIUM 100 MG CAPSULE PO (09:36)
[2020-05-25] MEDS: DULoxetine HCL 60 MG CAPSULE.DR PO (09:36)
[2020-05-25] MEDS: polyethylene glycoL 3350 17 GM POWD.PACK PO (09:37)
--- NOTE | 2020-05-25 12:10 | PM.IMPN ---
Subjective Date/time seen: 05/25/20 1145 Objective Data Vital Signs Vital Signs: Vital Signs - 24 hr 05/24/20 14:00 05/24/20 22:00 05/25/20 06:00 Temperature 97.8 F 97.4 F L 97.3 F L Pulse Rate 113 H 56 L 78 Respiratory Rate 18 18 16 Blood Pressure 133/66 144/87 H 128/75 Pulse Oximetry 94 97 98 Intake/Output Intake/Output: Intake & Output 05/22/20 05/23/20 05/24/20 05/25/20 23:59 23:59 23:59 23:59 Intake Total 674 380 3286 810 Output Total 664 198 3890 950 Balance 805 180 500 -140 Meds/Results Medications: Active Medications Generic Name Dose Route Start Last Admin Trade Name Freq PRN Reason Stop Dose Admin Acetaminophen 1,000 mg 05/23/20 14:00 05/25/20 06:08 Tylenol Tablet PO 1,000 mg Q8HR DUANE Administration Docusate Sodium 100 mg 05/22/20 21:00 05/25/20 09:36 Colace Capsule PO 100 mg Q12HR DUANE Administration Donepezil HCl 10 mg 05/22/20 21:00 05/24/20 21:51 Aricept PO 10 mg HS DUANE Administration Duloxetine HCl 60 mg 05/24/20 10:50 05/25/20 09:36 Cymbalta PO 60 mg DAILY DUANE Administration Enoxaparin Sodium 40 mg 05/24/20 09:00 05/25/20 09:36 Lovenox SUB-Q 40 mg DAILY DUANE Administration Famotidine 20 mg 05/22/20 21:00 05/24/20 21:51 Pepcid PO 20 mg Q12HR DUANE Administration Hydralazine HCl 10 mg 05/22/20 13:45 Apresoline Hcl Inj IV PUSH Q8H PRN SBP >160 Lorazepam 0.5 mg 05/23/20 22:03 05/24/20 15:43 Ativan Tablet PO 0.5 mg BID PRN Administration Anxiety Magnesium Hydroxide 30 ml 05/23/20 13:36 Milk Of Magnesia PO BID PRN Constipation Memantine 28 mg 05/22/20 21:00 05/24/20 21:51 Namenda Xr PO 28 mg HS DUANE Administration Naloxone HCl 0.1 mg 05/23/20 13:36 Narcan IV PUSH Q2M PRN Opiate Reversal Oxycodone HCl 5 mg 05/23/20 13:36 05/25/20 09:30 Roxicodone Ir Tablet PO 5 mg Q4H PRN Administration Pain Rated 7-10 Polyethylene Glycol 17 gm 05/23/20 09:00 05/25/20 09:37 Miralax PO 17 gm QAM DUANE Administration Sertraline HCl 50 mg 05/24/20 10:50 05/25/20 09:36 Zoloft PO 50 mg DAILY DUANE Administration Radiology Results: ITS Impressions Hip/Pelvis X-Ray 05/22/20 08:53 IMPRESSION: 1. Acute subcapital fracture of the right femoral neck. 2. Possible lytic lesion of the right proximal femoral diaphysis. This finding was discussed with Dr. Jose MD and will be further evaluated with CT. Hip CT 05/22/20 10:24 IMPRESSION: 1. No CT correlate identified for the lytic lesion questioned on radiograph. 2. Acute subcapital right femoral neck fracture. Intraoperative X-Ray 05/23/20 11:46 IMPRESSION: 1. Right hip arthroplasty in progress with broach in proximal right femur. Hip X-Ray 05/23/20 12:18 IMPRESSION: 1. Bipolar right hip hemiarthroplasty in near-anatomic alignment. Lumbar Spine X-Ray 05/24/20 14:21 IMPRESSION: 1. Chronic thoracic compression fractures with interval vertebroplasty at T8 and T12 and with interval progression of vertebral body height loss at T7. 2. Age indeterminate mild L5 compression fracture. 3. Severe spondylosis at L5-S1 and mild spondylosis of the remainder of the thoracic and lumbar spine. Thoracic Spine X-Ray 05/24/20 14:21 IMPRESSION: 1. Chronic thoracic compression fractures with interval vertebroplasty at T8 and T12 and with interval progression of vertebral body height loss at T7. 2. Age indeterminate mild L5 compression fracture. 3. Severe spondylosis at L5-S1 and mild spondylosis of the remainder of the thoracic and lumbar spine. Labs Labs: Laboratory Results - last 24 hr 05/25/20 06:31 Sodium 135 L Potassium 3.8 Chloride 103 Carbon Dioxide 29 Anion Gap 3 L BUN 14 Creatinine 0.50 L Estim Creat Clear Calc 85 Estimated GFR > 60 Glucose 100 Calcium 8.0 L Magnesium 2.1 Quality VTE Prophylaxis VTE prophylaxis:
--- NOTE | 2020-05-25 12:19 | PM.PNORT ---
Progress Note: A&P Assessment and Plan (1) Subcapital fracture of neck of right femur: Qualifiers: Encounter type: initial encounter Fracture type: closed Qualified Code(s): S72.011A - Unspecified intracapsular fracture of right femur, initial encounter for closed fracture Code(s): S72.011A - Unspecified intracapsular fracture of right femur, initial encounter for closed fracture Status: Resolved Assessment and Plan: 74-year-old female postop day two right bipolar replacement. Hospice plans noted. Although I generally like to see people two months after this procedure, I did tell her daughter that if all is going well at that point there is no need to bring her in. I also am always available by telephone for them. I will continue to follow while she is in the hospital. Subjective Subjective Date/Time Seen: 05/25/20 12:19 Post Op day: 2 Principal diagnosis: Right bipolar replacement Interval history: 74-year-old female postop day two right bipolar replacement. There are some issues with pain control secondary to her chronically being on pain medication. Exam Extrem: Other: Moves all four extremities purposefully. Bili nondistended. Alert but not oriented. Right hip wound healing up nicely with no erythema, no drainage and very little swelling. Motor and sensory function right lower extremity intact. Objective Data Vital Signs Vital Signs: Vital Signs - 24 hr 05/24/20 14:00 05/24/20 22:00 05/25/20 06:00 Temperature 97.8 F 97.4 F L 97.3 F L Pulse Rate 113 H 56 L 78 Respiratory Rate 18 18 16 Blood Pressure 133/66 144/87 H 128/75 Pulse Oximetry 94 97 98 Intake/Output Intake/Output: Intake & Output 05/22/20 05/23/20 05/24/20 05/25/20 23:59 23:59 23:59 23:59 Intake Total 980 / 980 610 / 610 2850 / 2850 810 / 810 Output Total 175 / 175 430 / 330.0 2350 / 2350 950 / 950 Balance 805 / 805 180 / 280.0 500 / 500 -140 / -140 Meds/Results Medications: Active Medications Generic Name Dose Route Start Last Admin Trade Name Freq PRN Reason Stop Dose Admin Acetaminophen 1,000 mg 05/23/20 14:00 05/25/20 06:08 Tylenol Tablet PO 1,000 mg Q8HR DUANE Administration Docusate Sodium 100 mg 05/22/20 21:00 05/25/20 09:36 Colace Capsule PO 100 mg Q12HR DUANE Administration Donepezil HCl 10 mg 05/22/20 21:00 05/24/20 21:51 Aricept PO 10 mg HS DUANE Administration Duloxetine HCl 60 mg 05/24/20 10:50 05/25/20 09:36 Cymbalta PO 60 mg DAILY DUANE Administration Enoxaparin Sodium 40 mg 05/24/20 09:00 05/25/20 09:36 Lovenox SUB-Q 40 mg DAILY DUANE Administration Famotidine 20 mg 05/22/20 21:00 05/24/20 21:51 Pepcid PO 20 mg Q12HR DUANE Administration Hydralazine HCl 10 mg 05/22/20 13:45 Apresoline Hcl Inj IV PUSH Q8H PRN SBP >160 Lorazepam 0.5 mg 05/23/20 22:03 05/24/20 15:43 Ativan Tablet PO 0.5 mg BID PRN Administration Anxiety Magnesium Hydroxide 30 ml 05/23/20 13:36 Milk Of Magnesia PO BID PRN Constipation Memantine 28 mg 05/22/20 21:00 05/24/20 21:51 Namenda Xr PO 28 mg HS DUANE Administration Naloxone HCl 0.1 mg 05/23/20 13:36 Narcan IV PUSH Q2M PRN Opiate Reversal Oxycodone HCl 5 mg 05/23/20 13:36 05/25/20 09:30 Roxicodone Ir Tablet PO 5 mg Q4H PRN Administration Pain Rated 7-10 Polyethylene Glycol 17 gm 05/23/20 09:00 05/25/20 09:37 Miralax PO 17 gm QAM DUANE Administration Sertraline HCl 50 mg 05/24/20 10:50 05/25/20 09:36 Zoloft PO 50 mg DAILY DUANE Administration Radiology Results: ITS Impressions Hip/Pelvis X-Ray 05/22/20 08:53 IMPRESSION: 1. Acute subcapital fracture of the right femoral neck. 2. Possible lytic lesion of the right proximal femoral diaphysis. This finding was discussed with Dr. Jose MD and will be further evaluated with CT. Hip CT 05/22/20 10:24 IMPRESSION: 1. No CT cor
[2020-05-25 14:00] VITALS: BP 149/60; PULSE 81; RESP 18; TEMP 36.6; O2SAT 98
--- NOTE | 2020-05-25 14:31 | PM.DS ---
DS: Admitting Diagnosis Admitting Diagnosis Admitting Diagnosis: Femoral Neck Fracture DS: Discharge Diagnosis Discharge Diagnosis (1) Subcapital fracture of neck of right femur: Qualifiers: Encounter type: initial encounter Fracture type: closed Qualified Code(s): S72.011A - Unspecified intracapsular fracture of right femur, initial encounter for closed fracture Code(s): S72.011A - Unspecified intracapsular fracture of right femur, initial encounter for closed fracture Status: Resolved Assessment and Plan: Date of Service 05/25/20 Ms. Ayon is a 74yo F with dementia, thoracic compression fractures followed by Pain Management, and hypertension who presented to the ED for evaluation of right hip pain after a fall at home. She was found to have a right femoral neck fracture and was evaluated by orthopedic surgery. She underwent bipolar right hip replacement 05/23/[address] Garcia. She has significant dementia and arrangements were made for her daughter, Ashlee, to stay in the room with her. When family was not around, patient's confusion significantly worsened and she became agitated. She had difficulty working with therapy in the postoperative period due to this. Family is most interested in keeping the patient comfortable,and it would be quite difficult for patient to discharge to a facility without family able to be present. Family met with [facility] hospice and patient was discharged home with hospice 05/25/20 in stable condition. She can follow up with Dr Garcia if desired. Sustained from mechanical, ground level fall on 05/21. Hip x-ray shows acute subcapital fracture of right femoral neck with possible lytic lesion of the right proximal femoral diaphysis. Follow-up CT did not show lytic lesion in question. She underwent right bipolar hip replacement 05/23/[address] Garcia. POD#2. Home pain meds for pain control, ASA. (2) Hypertension: Code(s): I10 - Essential (primary) hypertension Status: Acute Assessment and Plan: Blood pressures have been elevated may be in partly secondary to pain. Last 149/60 prior to discharge. Patient is not on any home antihypertensives. (3) Alzheimer's disease: Code(s): G30.9 - Alzheimer's disease, unspecified; F02.80 - Dementia in other diseases classified elsewhere without behavioral disturbance Status: Acute Assessment and Plan: Stable, pleasantly confused with family present. When family is absent, significant mental/cognitive decline is noted. Maintained on her home medications. (4) Thoracic compression fracture: Code(s): S22.000A - Wedge compression fracture of unspecified thoracic vertebra, initial encounter for closed fracture Status: Chronic Assessment and Plan: Patient is s/p kyphoplasty of T7-T8 earlier this year. She follows with Pain Management. Imaging shows interval progression of vertebral body height loss at T7. (5) Frequent falls: Code(s): R29.6 - Repeated falls Status: Acute Assessment and Plan: Patient's daughter reports 2 falls in the past month and several falls over the past year. See above. (6) Generalized weakness: Code(s): R53.1 - Weakness Status: Acute Assessment and Plan: Patient's daughter reports the patient has been extremely weak. This is likely secondary to deconditioning as patient's daughter reports she has been very sedentary. DS: Summary Time Spent with Patient Time attestation: Total time spent providing and/or coordinating discharge services: 40 minutes Exam Narrative: Exam Narrative: General: Female resting sitting up in bedside chair in no acute di
[2020-05-25] MEDS: LORazepam 0.5 MG TABLET PO (16:35)
--- NOTE | 2020-05-25 18:21 | PC.NURSE ---
Pt has been discharged home with hospice. Pt has no IV due to pt removing her own IV yesterday. Pt went home with a villegas catheter, per LATOYA Rosenbaum. Discharge packet reviewed and pt assisted to the ambulance stretcher.
== END 2020-05-25 18:20 | disposition hospice, home (50) | DRG 470 ==
LOC: ANHED 23:54 → ANH3MEDSUR 05-22 03:07
PROVIDERS: Orthopaedic Surgery; Physician Assistant; Admitting Provider Internal Medicine; Emergency Provider Emergency Medicine; PCP Family Medicine; Visit Provider Physician Assistant
PROC: 0SRR0JA Replacement of Right Hip Joint, Femoral Surface with Synthetic Substitute, Uncemented, Open Approach (ICD-10-PCS; CPT 27125; principal; 2020-05-23 09:30)
DX: S72.011A Unspecified intracapsular fracture of right femur, initial encounter for closed fracture (principal); S22.000A Wedge compression fracture of unspecified thoracic vertebra, initial encounter for closed fracture; I10 Essential (primary) hypertension; G30.9 Alzheimer's disease, unspecified; F02.80 Dementia in other diseases classified elsewhere, unspecified severity, without behavioral disturbance, psychotic disturbance, mood disturbance, and anxiety; F41.9 Anxiety disorder, unspecified; E78.5 Hyperlipidemia, unspecified; R53.1 Weakness; R29.6 Repeated falls; W18.30XA Fall on same level, unspecified, initial encounter; Z79.899 Other long term (current) drug therapy; Z96.652 Presence of left artificial knee joint
CPT/HCPCS: 36415; 51702; 72070; 72100; 73502; 73700; 80048; 81001; 82306; 83735; 85025; 85027; 85610; 85730; 88305; 88309; 88311; 93005; 96365; 96375; 96376; 97110; 97161; 97166; 97530; 99285; A9270; C1713; C1776; G0378; J0131; J0171; J0330; J0690; J1100; J1650; J2250; J2270; J2405; J2704; J3010; J7120